=== PATIENT | male | born 1970 | race African-American/Black ===

== ENCOUNTER 2017-01-25 17:53 | Emergency (ER) | payer SELFPAY ==
[2017-01-25] MEDS ORDERED: HYDROcodone/Acetaminophen 10/325 mg Tablet ONE (18:16)
--- NOTE | 2017-01-25 19:15 | RAD ---
LEFT HAND THREE VIEWS: 01/25/17 No fracture was seen. The thumb appeared intact. There might be a small cyst in the lunate, but even if real, the significance is doubtful. No acute joint findings were encountered. The carpal relatio ns are normal. IMPRESSION: No acute finding. POS: HOME
== END 2017-01-25 18:47 | disposition home or self-care (01) ==
LOC: BURERS 17:53
DX: S62.522A Displaced fracture of distal phalanx of left thumb, initial encounter for closed fracture (principal); F17.210 Nicotine dependence, cigarettes, uncomplicated; W55.22XA Struck by cow, initial encounter; Y92.79 Other farm location as the place of occurrence of the external cause; Y99.0 Civilian activity done for income or pay